=== PATIENT | female | born 2000 | race Native Hawaiian/Other Pacific Islander ===

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

== ENCOUNTER 2022-02-28 19:27 | Emergency (ER) | payer BC ==
[~2022-02-28] VITALS: Ht 170.2 cm; Wt 63.5 kg
[2022-02-28 19:35] VITALS: BP 131/85; TEMP 99.6
[2022-02-28 22:30] LABS: PLATELET COUNT 241 K/uL (152-353)
[2022-02-28 22:35] LABS: POTASSIUM 4.1 mmol/L (3.6-5.2)
== END 2022-03-01 | disposition home or self-care (01) ==
LOC: ED 19:27
PROVIDERS: Family Medicine
DX: J02.9 Acute pharyngitis, unspecified (principal); Z20.822 Contact with and (suspected) exposure to COVID-19
CPT/HCPCS: 36415; 80053; 85027; 86308; 87081; 87635; 87651; 99282; U0003

== ENCOUNTER 2022-05-01 23:30 | Emergency (ER) | payer BC ==
[~2022-05-01] VITALS: Ht 170.2 cm; Wt 61.7 kg
[2022-05-02 00:38] VITALS: BP 128/75; TEMP 98.6
== END 2022-05-02 00:38 | disposition home or self-care (01) ==
LOC: ED 23:30
DX: J10.1 Influenza due to other identified influenza virus with other respiratory manifestations (principal)
CPT/HCPCS: 87502; 87651; 99283

== ENCOUNTER 2022-10-21 14:25 | Outpatient (CLI) | payer BC | END 2022-10-21 17:00 | disposition home or self-care (01) | LOC: US 14:25 | PROVIDERS: ATTEND Nurse Practitioner Family | DX: N64.4 Mastodynia (principal) ==